=== PATIENT | female | born 1970 | race Caucasian/White ===

== ENCOUNTER 2016-11-20 09:37 | Inpatient (IN) | payer BC ==
[~2016-11-20] VITALS: Ht 157.5 cm; Wt 94.7 kg
[2016-11-20] MEDS ORDERED: OPTIRAY 350 100 ML VIAL HMH IV ONE (09:38)
[2016-11-20] MEDS ORDERED: NEB-ALBUTEROL 2.5 MG/3 ML INH ONE ×3 (11:09→11:10)
[2016-11-20] MEDS ORDERED: METHYLPRED SOD SUCC 125 MG/2 ML VIAL ONE (11:37)
[2016-11-20] MEDS ORDERED: SODIUM CHLORIDE 0.9% 1,000 ML ONE (12:04)
[2016-11-20] MEDS ORDERED: FAMOTIDINE 20 MG INJ ONE (12:08)
[2016-11-20] MEDS ORDERED: DIPHENHYDRAMINE 50 MG/ML VIAL ONE (12:08)
[2016-11-20] MEDS ORDERED: ONDANSETRON 4 MG VIAL ONE (12:09)
[2016-11-20] MEDS: DUONEB INH SCH ×3 (16:05→23:00)
[2016-11-20] MEDS ORDERED: ONDANSETRON 4 MG VIAL IV PRN (16:05)
[2016-11-20] MEDS ORDERED: MAG HYDROX 30 ML UDC PO PRN (16:05)
[2016-11-20] MEDS ORDERED: SALINE FLUSH 10 ML FLUSH PRN (16:05)
[2016-11-20] MEDS ORDERED: ACETAMINOPHEN 325 MG TAB PO PRN (16:05)
[2016-11-20] MEDS ORDERED: ALU/MAG/SIM 30 ML UDC PO PRN (16:05)
[2016-11-20 18:00] VITALS: Ht 157.5 cm; Wt 94.7 kg
[2016-11-20 18:57] VITALS: BP_SYST 102; BP_SYST 110; RESP 18; TEMP 98.4
[2016-11-20] MEDS: NEB-BUDESONIDE 0.5 MG INH SCH (19:15)
[2016-11-20 19:36] VITALS: RESP 18
[2016-11-20 19:39] VITALS: BP_SYST 96; RESP 16; TEMP 97
[2016-11-20] MEDS: CEFUROXIME 250 MG TAB PO SCH (21:02)
[2016-11-20] MEDS: MONTELUKAST 10 MG TAB PO SCH (21:02)
[2016-11-20] MEDS: SALINE FLUSH 10 ML FLUSH SCH (21:03)
[2016-11-20] MEDS: ACETAMINOPHEN 500 MG TAB PO PRN (22:45)
[2016-11-20 23:31] VITALS: BP_SYST 99; RESP 16; TEMP 98.2
[2016-11-21] VITALS (7 sets, daily range): BP systolic 94–117; RESP 16–20; TEMP 97.7–99.4
[2016-11-21] MEDS: SODIUM CHLORIDE 0.9% FLUSH BAG 500 ML IV SCH (06:00)
[2016-11-21] MEDS: PANTOPRAZOLE 40 MG TAB PO SCH (06:17)
[2016-11-21] MEDS: DUONEB INH SCH ×5 (06:38→23:48)
[2016-11-21] MEDS: NEB-BUDESONIDE 0.5 MG INH SCH ×2 (06:38→19:29)
[2016-11-21] MEDS: CEFUROXIME 250 MG TAB PO SCH ×2 (08:31→21:28)
[2016-11-21] MEDS: SALINE FLUSH 10 ML FLUSH SCH ×2 (08:31→21:27)
[2016-11-21] MEDS: FOLIC ACID 1 MG TAB PO SCH (08:31)
[2016-11-21] MEDS ORDERED: THEOPHYLLINE SR 200 MG CAP PO SCH (09:00)
[2016-11-21] MEDS: THEOPHYLLINE ER 300 MG TAB PO SCH ×2 (14:06→21:29)
[2016-11-22] VITALS (8 sets, daily range): BP systolic 97–119; RESP 16–20; TEMP 97.6–98.4
[2016-11-22] MEDS: SODIUM CHLORIDE 0.9% FLUSH BAG 500 ML IV SCH (05:42)
[2016-11-22] MEDS: PANTOPRAZOLE 40 MG TAB PO SCH (06:12)
[2016-11-22] MEDS: DUONEB INH SCH ×6 (07:55→23:11)
[2016-11-22] MEDS: NEB-BUDESONIDE 0.5 MG INH SCH ×2 (07:55→18:53)
[2016-11-22] MEDS: SALINE FLUSH 10 ML FLUSH SCH ×2 (08:18→20:43)
[2016-11-22] MEDS: FOLIC ACID 1 MG TAB PO SCH (08:20)
[2016-11-22] MEDS: MONTELUKAST 10 MG TAB PO SCH (08:20)
[2016-11-22] MEDS: CEFUROXIME 250 MG TAB PO SCH ×2 (08:21→20:42)
[2016-11-22] MEDS: THEOPHYLLINE ER 300 MG TAB PO SCH ×2 (08:21→20:42)
[2016-11-22] MEDS: ACETAMINOPHEN 500 MG TAB PO PRN ×2 (10:50→20:41)
[2016-11-22] MEDS ORDERED: ZOLPIDEM 5 MG TAB PO PRN (15:45)
[2016-11-22] MEDS ORDERED: TUSSIONEX SUSP UDC PO PRN (15:45)
[2016-11-22] MEDS: BENZONATATE 100 MG CAP PO SCH ×2 (17:14→20:42)
[2016-11-22] MEDS: GUAIFENESIN ER 600 MG TABCR PO SCH (20:42)
[2016-11-22] MEDS: LORAZEPAM 0.5 MG TAB PO SCH (21:00)
[2016-11-23] VITALS (7 sets, daily range): BP systolic 97–121; RESP 16–20; TEMP 97.5–98.4
[2016-11-23] MEDS: SODIUM CHLORIDE 0.9% FLUSH BAG 500 ML IV SCH (05:18)
[2016-11-23] MEDS: PANTOPRAZOLE 40 MG TAB PO SCH (06:12)
[2016-11-23] MEDS: ACETAMINOPHEN 500 MG TAB PO PRN (06:12)
[2016-11-23] MEDS: DUONEB INH SCH ×2 (07:26→11:08)
[2016-11-23] MEDS: NEB-BUDESONIDE 0.5 MG INH SCH ×2 (07:26→19:05)
[2016-11-23] MEDS: SALINE FLUSH 10 ML FLUSH SCH ×2 (08:00→20:00)
[2016-11-23] MEDS: MONTELUKAST 10 MG TAB PO SCH (08:37)
[2016-11-23] MEDS: FOLIC ACID 1 MG TAB PO SCH (08:37)
[2016-11-23] MEDS: CEFUROXIME 250 MG TAB PO SCH ×2 (08:38→20:22)
[2016-11-23] MEDS: GUAIFENESIN ER 600 MG TABCR PO SCH ×2 (08:38→20:22)
[2016-11-23] MEDS: LORAZEPAM 0.5 MG TAB PO SCH ×2 (08:39→20:22)
[2016-11-23] MEDS: BENZONATATE 100 MG CAP PO SCH ×3 (08:39→20:22)
[2016-11-23] MEDS: THEOPHYLLINE ER 300 MG TAB PO SCH (08:40)
[2016-11-23] MEDS ORDERED: PREDNISONE 20 MG TAB PO SCH (09:00)
[2016-11-23] MEDS: NEB-XOPENEX 0.63 MG/3 ML INH SCH ×3 (14:57→23:48)
[2016-11-23] MEDS ORDERED: METOPROLOL XL 25 MG TAB PO ONE (17:30)
[2016-11-24] MEDS: NEB-XOPENEX 0.63 MG/3 ML INH SCH ×6 (02:41→23:17)
[2016-11-24 03:21] VITALS: BP_SYST 100; RESP 18; TEMP 98.3
[2016-11-24] MEDS: SODIUM CHLORIDE 0.9% FLUSH BAG 500 ML IV SCH (04:44)
[2016-11-24] MEDS: PANTOPRAZOLE 40 MG TAB PO SCH (06:10)
[2016-11-24 07:19] VITALS: BP_SYST 98; RESP 18; TEMP 98.2
[2016-11-24] MEDS: NEB-BUDESONIDE 0.5 MG INH SCH ×2 (07:56→19:49)
[2016-11-24] MEDS: SALINE FLUSH 10 ML FLUSH SCH ×2 (08:00→19:33)
[2016-11-24] MEDS: PREDNISONE 20 MG TAB PO SCH (08:44)
[2016-11-24] MEDS: GUAIFENESIN ER 600 MG TABCR PO SCH ×2 (08:44→20:19)
[2016-11-24] MEDS: MONTELUKAST 10 MG TAB PO SCH (08:44)
[2016-11-24] MEDS: BENZONATATE 100 MG CAP PO SCH ×3 (08:45→20:19)
[2016-11-24] MEDS: LORAZEPAM 0.5 MG TAB PO SCH ×2 (08:45→20:19)
[2016-11-24] MEDS: CEFUROXIME 250 MG TAB PO SCH ×2 (08:45→20:19)
[2016-11-24] MEDS: FOLIC ACID 1 MG TAB PO SCH (08:45)
[2016-11-24 11:06] VITALS: BP_SYST 108; RESP 18; TEMP 97.8
[2016-11-24 16:06] VITALS: BP_SYST 104; RESP 18; TEMP 98.3
[2016-11-24 19:08] VITALS: BP_SYST 137; RESP 18; TEMP 98.2
[2016-11-24 23:24] VITALS: BP_SYST 112; RESP 18; TEMP 97.4
[2016-11-25] MEDS: NEB-XOPENEX 0.63 MG/3 ML INH SCH ×4 (03:15→15:42)
[2016-11-25 03:22] VITALS: BP_SYST 109; RESP 18; TEMP 97.5
[2016-11-25] MEDS: SODIUM CHLORIDE 0.9% FLUSH BAG 500 ML IV SCH (05:59)
[2016-11-25] MEDS: PANTOPRAZOLE 40 MG TAB PO SCH (06:32)
[2016-11-25] MEDS: SALINE FLUSH 10 ML FLUSH SCH (07:06)
[2016-11-25 07:19] VITALS: BP_SYST 114; RESP 18; TEMP 97.8
[2016-11-25] MEDS: NEB-BUDESONIDE 0.5 MG INH SCH (07:37)
[2016-11-25] MEDS: CEFUROXIME 250 MG TAB PO SCH (08:14)
[2016-11-25] MEDS: GUAIFENESIN ER 600 MG TABCR PO SCH (08:14)
[2016-11-25] MEDS: BENZONATATE 100 MG CAP PO SCH ×2 (08:14→16:00)
[2016-11-25] MEDS: FOLIC ACID 1 MG TAB PO SCH (08:14)
[2016-11-25] MEDS: LORAZEPAM 0.5 MG TAB PO SCH (08:14)
[2016-11-25] MEDS: MONTELUKAST 10 MG TAB PO SCH (08:14)
[2016-11-25] MEDS: PREDNISONE 20 MG TAB PO SCH (08:14)
[2016-11-25 11:14] VITALS: BP_SYST 116; RESP 18; TEMP 97.8
[2016-11-25 15:53] VITALS: BP_SYST 116; RESP 18; TEMP 97.8
== END 2016-11-25 16:11 | disposition home or self-care (01) | DRG 202 ==
LOC: ENRESERVDT → ENRESERVTM → ER 09:37 → EMR 16:05 → ENPENDDIS 16:05 → 3NT 18:05
PROVIDERS: ADMIT Internal Medicine; ATTEND Internal Medicine
CPT/HCPCS: 36600; 70450; 71010; 71260; 80048; 80198; 82803; 83735; 93005; 94640; 94644; 94645; 94799; 96361; 96374; 96375